=== PATIENT | male | born 2000 | race Caucasian/White ===

== ENCOUNTER 2024-04-28 06:43 | Day surgery (SDC) | payer OTHER ==
[2024-04-26 11:06] VITALS: BMI 24.1
[2024-04-28] MEDS: IV FLUID CONTINUATION 1,000 ML IV ONE (07:14)
[2024-04-28] MEDS ORDERED: HYDROmorphone 0.5 MG/0.5 ML SYRINGE IVP PRN (07:17)
[2024-04-28] MEDS: OXYMETAZOLINE 0.05% NASL SPRAY 1 SPRAY BOTTLE EA NOSTRIL PRN (07:20)
[2024-04-28] MEDS: DEXAMETHASONE SOD PHOSPHATE 4 MG/ML 1 ML VIAL IV ONE (07:28)
[2024-04-28] MEDS: FAMOTIDINE 20 MG/2 ML VIAL IV PRN (07:28)
[2024-04-28] MEDS: ONDANSETRON 4 MG/2 ML VIAL IVP ONE (07:29)
[2024-04-28] MEDS: LACTATED RINGERS 1,000 ML IV SCH (07:30)
[2024-04-28] MEDS: LACTATED RINGERS 1,000 ML BAG IV STA (07:31)
[2024-04-28] MEDS ORDERED: MIDAZOLAM 2 MG/2 ML VIAL ONE (08:37)
[2024-04-28] MEDS ORDERED: LIDOCAINE 1% INJ 10MG/ML (20 ML MDV) ONE (08:37)
[2024-04-28] MEDS ORDERED: SUCCINYLCHOLINE CHLORIDE 200 MG/10 ML VIAL IV ONE (08:37)
[2024-04-28] MEDS ORDERED: fentaNYL (PF) 50 MCG/ML 2 ML AMP ONE (08:37)
[2024-04-28] MEDS ORDERED: DEXAMETHASONE SOD PHOSPHATE 10 MG/ML 1 ML VIAL ONE (08:37)
[2024-04-28] MEDS ORDERED: PROPOFOL 10 MG/ML 20 ML VIAL IV ONE (08:37)
[2024-04-28] MEDS: LIDOCAINE 1%-EPI 1:100,000 20 ML VIAL SUBMUCOSAL ONE (08:52)
[2024-04-28] MEDS: BACITRACIN ZINC 500 UNIT/GM OINT 28.4 GM TUBE TOPICAL ONE (08:58)
--- NOTE | 2024-04-28 09:24 | P.OP ---
Date of Procedure: 04/28/24 Preoperative Diagnosis: deviated nasal septum Inferior turbinate hypertrophy Postoperative Diagnosis: same Procedure(s) Performed: septoplasty Outfracture and submucous resection of the inferior turbinates Anesthesia: ANNEA Surgeon: Vineet Lopez Estimated Blood Loss (ml): 5 Pathology: other (septal bone and cartilage) Condition: stable Disposition: PACU Indications for Procedure: this 23-year-old white male whose had difficulties with chronic nasal airway obstruction and congestion which did not improve with medical management such as steroid nasal sprays Operative Findings: nasal septum deviated to the left anteriorly to the right posteriorly with inferior turbinate hypertrophy bilateral Description of Procedure: DESCRIPTION OF PROCEDURE: The patient was brought to the operative suite, placed in the supine position. The patient underwent induction of general anesthesia with oral endotracheal intubation without difficulty. The patient was prepped and draped in the usual aseptic fashion. 1% lidocaine with 1:100,000 epinephrine was infused submucosally on both sides of the nasal septum. While this was taking vasoconstrictive effect, the inferior turbinates were infractured with a Collier elevator. Partial submucous resection of the inferior turbinates was performed with Coblation device ablating a portion of the submucosal soft tissue. The inferior turbinates were then outfractured with a Collier elevator. A left hemitransfixion incision was then made through the mucoperichondrial. Mucoperiosteal flap on the left elevated. Bony cartilaginous junction was disarticulated and mucoperiosteal flap on the right was elevated. Bony nasoseptal deformity were removed with Dennis forceps and an inferior cartilaginous strip was removed, leaving a full 1.5 cm caudal strut. Checking intranasally, this corrected the nasal septal deformities and the hemitransfixion incision was closed with running 4-0 chromic suture. The bilateral Alfaro airway splints coated in bacitracin ointment were placed in the nasal cavities and sutured transseptally with 4-0 nylon suture. The patient was then suctioned in an orogastric fashion. The patient was allowed to emerge from general anesthesia, having tolerated the procedure well and was extubated in the operating suite, transferred to postoperative recovery area in satisfactory condition.
[2024-04-28 09:45] VITALS: TEMP 97.8
[2024-04-28 10:35] VITALS: RESP 16
[2024-04-28] MEDS: HYDROcodone/APAP 5-325MG 1 EACH TAB PO STA (10:48)
[2024-04-28 10:51] VITALS: BP 125/83
[2024-04-28 11:12] VITALS: PULSE 79
== END 2024-04-28 11:43 | disposition home or self-care (01) ==
LOC: OR 06:43
PROVIDERS: ATTEND Otolaryngology
DX: J34.2 Deviated nasal septum (principal); J34.3 Hypertrophy of nasal turbinates; J30.89 Other allergic rhinitis; T78.1XXA Other adverse food reactions, not elsewhere classified, initial encounter; Z90.49 Acquired absence of other specified parts of digestive tract; Z79.899 Other long term (current) drug therapy
CPT/HCPCS: 30520; 30140; J2250; J0330; J1100 ×2; J0690; J2405; J2003; J3010; J3490; J2704